=== PATIENT | male | born 1955 | race Caucasian/White ===

== ENCOUNTER → 2018-03-18 | Outpatient (REF) | payer OTHER | LOC: M SFHCCLAY 11:46 | DX: C44.609 Unspecified malignant neoplasm of skin of left upper limb, including shoulder (principal) | CPT/HCPCS: 88305 ==

== ENCOUNTER → 2018-04-29 | Outpatient (REF) | payer MEDICARE, OTHER | LOC: M SFHCCLAY 13:44 | DX: C44.92 Squamous cell carcinoma of skin, unspecified (principal) | CPT/HCPCS: 87205 ==

== ENCOUNTER → 2018-06-01 | Outpatient (REF) | payer MEDICARE | LOC: M LAB REF 17:58 | DX: D48.5 Neoplasm of uncertain behavior of skin (principal) | CPT/HCPCS: 88305 ==

== ENCOUNTER 2018-06-03 21:25 | Emergency (ER) | payer MEDICARE, OTHER | END 2018-06-03 23:52 | disposition home or self-care (01) | LOC: M ED 21:25 | DX: T81.31XA Disruption of external operation (surgical) wound, not elsewhere classified, initial encounter (principal); X58.XXXA Exposure to other specified factors, initial encounter; Y92.89 Other specified places as the place of occurrence of the external cause; Z79.899 Other long term (current) drug therapy; Z79.82 Long term (current) use of aspirin | CPT/HCPCS: 99283 ==

== ENCOUNTER → 2019-04-04 | Outpatient (REF) | payer MEDICARE, MEDICAID ==
[~2019-04-04] MED LIST: ASPI81TA85 PO; ATIV1TAB10 PO; CENT1TAB PO; VITA400C67 PO; VITA500T PO
[2019-04-05 13:26] LABS: HEMATOCRIT 43.6 % (42.0-52.0); HEMOGLOBIN 14.7 g/dl (13.5-17.5); MEAN CORPUSCULAR HEMOGLOBIN 33.7 pg (27.0-33.0); MEAN CORPUSCULAR HGB CONC 33.7 g/dl (32.0-36.5); PLATELET COUNT, AUTOMATED 247 10^3/uL (150-450); RED BLOOD COUNT 4.36 10^6/uL (4.30-6.10); WHITE BLOOD COUNT 7.8 10^3/uL (4.0-10.0)
[2019-04-05 13:35] LABS: ALBUMIN 3.9 GM/DL (3.2-5.2); ALT/SGPT 21 U/L (12-78); BILIRUBIN,TOTAL 0.7 MG/DL (0.2-1.0); BLOOD UREA NITROGEN 19 MG/DL (7-18); CALCIUM LEVEL 9.1 MG/DL (8.8-10.2); CARBON DIOXIDE LEVEL 28 MEQ/L (21-32); CHLORIDE LEVEL 108 MEQ/L (98-107); CREATININE FOR GFR 1.23 MG/DL (0.70-1.30); GLOMERULAR FILTRATION RATE > 60.0 (>49); GLUCOSE, FASTING 85 MG/DL (70-100); SODIUM LEVEL 141 MEQ/L (136-145); TOTAL PROTEIN 7.7 GM/DL (6.4-8.2)
== END ==
LOC: M SFHCCLAY 15:23
PROVIDERS: ATTEND Family Medicine
DX: D36.9 Benign neoplasm, unspecified site (principal); F41.9 Anxiety disorder, unspecified